=== PATIENT | female | born 1950 | race Caucasian/White ===

== ENCOUNTER 2016-07-07 23:09 | Inpatient (IN) | payer MEDICARE, MEDICAID, OTHER ==
[~2016-07-07] VITALS: Ht 172.7 cm; Wt 58.4 kg
[~2016-07-07 23:09] MED LIST: ATOM25 PO; BACL10TA PO; DIPH25CA85 PO; DULO60CA44 PO; LEVO100 PO; LURA40 PO; OMEP20 PO; TRAZ-147 PO
[2016-07-07 23:26] LABS: EOSINOPHILS % (AUTO) 0 % (1.0-6.0); HEMATOCRIT 37.7 % (36-46); HEMOGLOBIN 12.3 g/dL (12.0-16.0); LYMPHOCYTES # (AUTO) 0.8 K/uL (1.0-4.8); LYMPHOCYTES % (AUTO) 6.5 % (22.0-44.0); MEAN CORPUSCULAR HEMOGLOBIN 29.3 pg (26.0-34.0); MEAN CORPUSCULAR HGB CONC 32.7 G/dL (31.0-37.0); MEAN CORPUSCULAR VOLUME 90 fL (80-100); MONOCYTES # (AUTO) 0.3 K/uL (0.1-1.0); MONOCYTES % (AUTO) 2.1 % (2.0-9.0); NEUTROPHILS # (AUTO) 11.5 K/uL (1.8-7.7); PLATELET COUNT (AUTO) 289 K/uL (150-450); RED BLOOD CELL COUNT(AUTO) 4.21 MIL/uL (4.00-5.20); RED CELL DISTRIBUTION WIDTH 14.5 % (11.5-14.5); WHITE BLOOD COUNT (AUTO) 12.6 K/uL (4.5-11.0)
[2016-07-07 23:28] LABS: NEUTROPHILS % (AUTO) 91.4 % (40.0-70.0)
[2016-07-07] MEDS ORDERED: LEVO50TA4 PO (23:28)
[2016-07-07] MEDS ORDERED: PERM60CR4 TP (23:28)
[2016-07-07 23:35] LABS: ANION GAP 10 mmol/L (8-16); CALCIUM, TOTAL 9.4 mg/dL (8.8-10.5); CARBON DIOXIDE 31 mmol/L (22-29); CHLORIDE 89 mmol/L (98-107); CREATININE 1.23 mg/dL (0.60-1.30); GLOMERULAR FILTR. RATE CALC 44 mL/min (>60); POTASSIUM 3.6 mmol/L (3.5-5.1); SODIUM SERUM 130 mmol/L (136-145); UREA NITROGEN, BLOOD 31 mg/dL (7-18)
[2016-07-07 23:41] LABS: ALANINE AMINOTRANSFERASE 33 U/L (12-78); ALBUMIN 3.2 g/dL (3.4-5.0); ASPARTATE AMINOTRANSFERASE 28 U/L (15-37); BILIRUBIN,TOTAL 0.7 mg/dL (0.1-1.0); TOTAL PROTEIN, SERUM 7.3 g/dL (6.4-8.2)
[2016-07-08] MEDS ORDERED: HALOPERIDOL 5 MG TABLET PO PRN (02:30)
[2016-07-08] MEDS ORDERED: ZOLPIDEM TARTRATE 10 MG TABLET PO PRN (02:30)
[2016-07-08] MEDS ORDERED: LORazepam 2 MG TABLET PO PRN (02:30)
[2016-07-08] MEDS ORDERED: LORazepam 2 MG TABLET PO ONE (02:45)
[2016-07-08] MEDS ORDERED: DiphenhydrAMINE HCL 25 MG CAPSULE PO ONE (02:45)
[2016-07-08 05:24] LABS: APPEARANCE,URINE CLOUDY (CLEAR); GLUCOSE, URINE (UA) NEGATIVE (NEGATIVE); KETONES,URINE NEGATIVE (NEGATIVE); LEUKOCYTE ESTERASE ,URINE NEGATIVE (NEGATIVE); OCCULT BLOOD,URINE NEGATIVE (NEGATIVE); PH,URINE 5.5 (5.0-8.0); PROTEIN,URINE NEGATIVE (NEGATIVE)
[2016-07-08 05:32] LABS: ADD UA MICROSCOPIC YES
[2016-07-08 05:34] LABS: RBC,URINE 0-2 /HPF (0-2); SQUAMOUS EPITHELIAL CELL,UR Many /LPF (None Seen)
[2016-07-08 06:09] VITALS: BP_SYST 118
[2016-07-08] MEDS ORDERED: INFLUENZA VIRUS VACCINE QVS 2016-17 (3YR+)/PF 60 MCG/0.5 ML SYRINGE IM ONE (06:15)
[2016-07-08] MEDS ORDERED: PNEUMOCOCCAL VACCINE POLYVALENT 0.5 ML VIAL [PPSV23] IM ONE (06:45)
[2016-07-08 08:00] VITALS: BP 122/73
[2016-07-08] MEDS ORDERED: ACETAMINOPHEN 325 MG TABLET PO PRN (10:45)
[2016-07-08] MEDS ORDERED: MAG HYDROX/AL HYDROX/SIMETH ES 30 ML SUSPENSION UDCUP PO PRN (10:45)
[2016-07-08] MEDS ORDERED: GuaiFENesin/D-METHORPHAN [SUGAR-FREE] 200-20MG/10 ML SYRUP UDCUP PO PRN (10:45)
[2016-07-08] MEDS ORDERED: BREXPIPRAZOLE 2 MG TABLET PO PRN (10:45)
[2016-07-08] MEDS ORDERED: TUBERCULIN, PURIFIED PROTEIN DERIVATIVE 5 TU/0.1 ML SYG ID ONE (10:45)
[2016-07-08] MEDS ORDERED: HydrOXYzine PAMOATE 50 MG CAPSULE PO PRN (10:45)
[2016-07-08] MEDS ORDERED: LOPERAMIDE HCL 2 MG CAPSULE PO PRN (10:45)
[2016-07-08] MEDS ORDERED: PROMETHAZINE HCL 25 MG TABLET PO PRN (10:45)
[2016-07-08] MEDS ORDERED: LEVO100 PO (11:24)
[2016-07-08] MEDS ORDERED: ALBUTEROL SULFATE HFA 90 MCG/PUFF 8 GM INHALER IH PRN (11:30)
[2016-07-08] MEDS ORDERED: IPRATROPIUM BROMIDE 0.5 MG/2.5 ML NEB SOLUTION NEB PRN (11:30)
[2016-07-08] MEDS ORDERED: ALBUTEROL SULFATE 2.5 MG/0.5 ML NEB SOLUTION NEB PRN (11:30)
[2016-07-08] MEDS ORDERED: BENZOCAINE/MENTHOL LOZENGE [8 LOZENGES/PACKET] MM PRN (11:30)
[2016-07-08] MEDS ORDERED: GuaiFENesin/D-METHORPHAN/PHENYLEPH 5 ML LIQUID ORAL.SYG PO PRN (11:30)
[2016-07-08] MEDS ORDERED: IBUPROFEN 400 MG TABLET PO PRN (12:00)
[2016-07-08] MEDS: CEPHALEXIN MONOHYDRATE 500 MG CAPSULE PO SCH ×2 (13:14→17:05)
[2016-07-08] MEDS: BACLOFEN 10 MG TABLET PO SCH (16:18)
[2016-07-08] MEDS ORDERED: LEVOFLOXACIN 500 MG TABLET PO SCH (16:30)
[2016-07-08 17:02] VITALS: BP 95/51
[2016-07-08] MEDS: OMEPRAZOLE 20 MG CAPSULE PO SCH (17:05)
[2016-07-08] MEDS: THIAMINE HCL 100 MG TABLET PO SCH (17:05)
[2016-07-08] MEDS: BREXPIPRAZOLE 1 MG TABLET PO SCH (20:02)
[2016-07-08] MEDS: TraZODone HCL 100 MG TABLET PO SCH (20:03)
[2016-07-09 05:52] VITALS: BP 138/86
[2016-07-09] MEDS: LEVOTHYROXINE SODIUM 100 MCG TABLET PO SCH (06:24)
[2016-07-09] MEDS: BACLOFEN 10 MG TABLET PO SCH ×3 (08:00→16:01)
[2016-07-09] MEDS: CEPHALEXIN MONOHYDRATE 500 MG CAPSULE PO SCH ×3 (08:59→16:06)
[2016-07-09] MEDS: DULoxetine HCL 20 MG CAPSULE PO SCH (08:59)
[2016-07-09] MEDS: FOLIC ACID 1 MG TABLET PO SCH (08:59)
[2016-07-09] MEDS: OMEPRAZOLE 20 MG CAPSULE PO SCH ×2 (09:00→16:06)
[2016-07-09] MEDS: THIAMINE HCL 100 MG TABLET PO SCH ×2 (09:00→16:06)
[2016-07-09] MEDS: MULTIVITAMINS WITH MINERALS, THERAPEUTIC TABLET PO SCH (09:00)
[2016-07-09] MEDS ORDERED: ATOMOXETINE HCL 25 MG CAPSULE PO SCH (09:00)
[2016-07-09 09:59] VITALS: BP 124/58
[2016-07-09 18:27] VITALS: BP 125/67
[2016-07-09] MEDS: TraZODone HCL 100 MG TABLET PO SCH (20:59)
[2016-07-09] MEDS: BREXPIPRAZOLE 1 MG TABLET PO SCH (21:00)
[2016-07-09] MEDS: MAGNESIUM HYDROXIDE SUSPENSION 30 ML UDCUP PO PRN (21:22)
[2016-07-10 04:23] VITALS: BP 127/85
[2016-07-10] MEDS: LEVOTHYROXINE SODIUM 100 MCG TABLET PO SCH (06:42)
[2016-07-10] MEDS: MAGNESIUM HYDROXIDE SUSPENSION 30 ML UDCUP PO PRN (07:14)
[2016-07-10] MEDS: BACLOFEN 10 MG TABLET PO SCH ×3 (08:00→16:00)
[2016-07-10] MEDS: FOLIC ACID 1 MG TABLET PO SCH (08:53)
[2016-07-10] MEDS: OMEPRAZOLE 20 MG CAPSULE PO SCH ×2 (08:54→16:10)
[2016-07-10] MEDS: MULTIVITAMINS WITH MINERALS, THERAPEUTIC TABLET PO SCH (08:54)
[2016-07-10] MEDS: THIAMINE HCL 100 MG TABLET PO SCH ×2 (08:54→16:09)
[2016-07-10] MEDS: DULoxetine HCL 20 MG CAPSULE PO SCH (08:54)
[2016-07-10] MEDS: CEPHALEXIN MONOHYDRATE 500 MG CAPSULE PO SCH ×3 (08:54→16:09)
[2016-07-10 09:38] VITALS: BP 118/78
[2016-07-10] MEDS: BREXPIPRAZOLE 1 MG TABLET PO SCH (20:22)
[2016-07-10] MEDS: TraZODone HCL 100 MG TABLET PO SCH (20:22)
[2016-07-10 20:39] VITALS: BP 119/76
[2016-07-11] MEDS: BACLOFEN 10 MG TABLET PO SCH ×4 (00:41→16:29)
[2016-07-11 00:57] VITALS: BP 142/62
[2016-07-11] MEDS: MAGNESIUM HYDROXIDE SUSPENSION 30 ML UDCUP PO PRN (03:50)
[2016-07-11] MEDS: LEVOTHYROXINE SODIUM 100 MCG TABLET PO SCH (06:21)
[2016-07-11] MEDS: CEPHALEXIN MONOHYDRATE 500 MG CAPSULE PO SCH ×3 (09:00→17:00)
[2016-07-11] MEDS: OMEPRAZOLE 20 MG CAPSULE PO SCH ×2 (09:18→16:30)
[2016-07-11] MEDS: MULTIVITAMINS WITH MINERALS, THERAPEUTIC TABLET PO SCH (09:18)
[2016-07-11] MEDS: FOLIC ACID 1 MG TABLET PO SCH (09:19)
[2016-07-11] MEDS: DULoxetine HCL 20 MG CAPSULE PO SCH (09:19)
[2016-07-11] MEDS: THIAMINE HCL 100 MG TABLET PO SCH ×2 (09:19→16:29)
[2016-07-11 10:19] VITALS: BP 119/97
[2016-07-11 16:02] VITALS: BP 123/78
[2016-07-11] MEDS: TraZODone HCL 100 MG TABLET PO SCH (20:28)
[2016-07-11] MEDS: BREXPIPRAZOLE 1 MG TABLET PO SCH (20:28)
[2016-07-12 00:30] VITALS: BP 144/82
[2016-07-12] MEDS: LEVOTHYROXINE SODIUM 100 MCG TABLET PO SCH (06:39)
[2016-07-12] MEDS: BACLOFEN 10 MG TABLET PO SCH ×3 (08:00→16:00)
[2016-07-12 08:05] VITALS: BP 111/78
[2016-07-12] MEDS: THIAMINE HCL 100 MG TABLET PO SCH ×2 (09:00→16:20)
[2016-07-12] MEDS: OMEPRAZOLE 20 MG CAPSULE PO SCH ×2 (09:00→16:19)
[2016-07-12] MEDS: CEPHALEXIN MONOHYDRATE 500 MG CAPSULE PO SCH ×3 (09:00→16:19)
[2016-07-12] MEDS: DULoxetine HCL 20 MG CAPSULE PO SCH (09:00)
[2016-07-12] MEDS: FOLIC ACID 1 MG TABLET PO SCH (09:00)
[2016-07-12] MEDS: MULTIVITAMINS WITH MINERALS, THERAPEUTIC TABLET PO SCH (09:31)
[2016-07-12 17:16] VITALS: BP 129/91
[2016-07-12] MEDS: TraZODone HCL 100 MG TABLET PO SCH (20:09)
[2016-07-12] MEDS: BREXPIPRAZOLE 1 MG TABLET PO SCH (20:09)
[2016-07-13 05:59] VITALS: BP 155/80
[2016-07-13] MEDS: LEVOTHYROXINE SODIUM 100 MCG TABLET PO SCH (06:05)
[2016-07-13] MEDS: BACLOFEN 10 MG TABLET PO SCH ×3 (08:00→16:00)
[2016-07-13] MEDS: OMEPRAZOLE 20 MG CAPSULE PO SCH ×2 (08:13→16:10)
[2016-07-13] MEDS: CEPHALEXIN MONOHYDRATE 500 MG CAPSULE PO SCH ×3 (08:13→16:10)
[2016-07-13] MEDS: DULoxetine HCL 20 MG CAPSULE PO SCH (08:13)
[2016-07-13] MEDS: MULTIVITAMINS WITH MINERALS, THERAPEUTIC TABLET PO SCH (08:13)
[2016-07-13] MEDS: FOLIC ACID 1 MG TABLET PO SCH (08:13)
[2016-07-13] MEDS: THIAMINE HCL 100 MG TABLET PO SCH ×2 (08:14→16:10)
[2016-07-13 08:50] VITALS: BP 130/101
[2016-07-13 18:24] VITALS: BP 122/84
[2016-07-13] MEDS: TraZODone HCL 100 MG TABLET PO SCH (20:13)
[2016-07-13] MEDS: BREXPIPRAZOLE 1 MG TABLET PO SCH (20:13)
[2016-07-14 06:40] VITALS: BP 133/84
[2016-07-14] MEDS: LEVOTHYROXINE SODIUM 100 MCG TABLET PO SCH (07:00)
[2016-07-14] MEDS: BACLOFEN 10 MG TABLET PO SCH ×4 (08:00→23:59)
[2016-07-14 08:05] VITALS: BP 136/80
[2016-07-14] MEDS: MULTIVITAMINS WITH MINERALS, THERAPEUTIC TABLET PO SCH (08:44)
[2016-07-14] MEDS: THIAMINE HCL 100 MG TABLET PO SCH ×2 (09:00→17:00)
[2016-07-14] MEDS: DULoxetine HCL 20 MG CAPSULE PO SCH (09:00)
[2016-07-14] MEDS: CEPHALEXIN MONOHYDRATE 500 MG CAPSULE PO SCH ×3 (09:00→17:00)
[2016-07-14] MEDS: FOLIC ACID 1 MG TABLET PO SCH (09:00)
[2016-07-14] MEDS: OMEPRAZOLE 20 MG CAPSULE PO SCH ×2 (09:00→17:00)
[2016-07-14 09:14] LABS: ANION GAP 6 mmol/L (8-16); CALCIUM, TOTAL 8.7 mg/dL (8.8-10.5); CARBON DIOXIDE 32 mmol/L (22-29); CHLORIDE 100 mmol/L (98-107); CREATININE 0.83 mg/dL (0.60-1.30); GLOMERULAR FILTR. RATE CALC > 60 mL/min (>60); POTASSIUM 3.9 mmol/L (3.5-5.1); SODIUM SERUM 138 mmol/L (136-145); UREA NITROGEN, BLOOD 8 mg/dL (7-18)
[2016-07-14 15:45] VITALS: BP 120/66
[2016-07-14] MEDS: BREXPIPRAZOLE 1 MG TABLET PO SCH (21:00)
[2016-07-14] MEDS: TraZODone HCL 100 MG TABLET PO SCH (21:00)
[2016-07-14 22:57] VITALS: BP 124/71
[2016-07-15] MEDS: LEVOTHYROXINE SODIUM 100 MCG TABLET PO SCH (06:50)
[2016-07-15] MEDS: MULTIVITAMINS WITH MINERALS, THERAPEUTIC TABLET PO SCH (08:38)
[2016-07-15] MEDS: FOLIC ACID 1 MG TABLET PO SCH (08:38)
[2016-07-15] MEDS: CEPHALEXIN MONOHYDRATE 500 MG CAPSULE PO SCH ×3 (08:38→16:37)
[2016-07-15] MEDS: OMEPRAZOLE 20 MG CAPSULE PO SCH ×2 (08:38→16:37)
[2016-07-15] MEDS: THIAMINE HCL 100 MG TABLET PO SCH ×2 (08:38→16:37)
[2016-07-15] MEDS: DULoxetine HCL 20 MG CAPSULE PO SCH (08:38)
[2016-07-15] MEDS: BACLOFEN 10 MG TABLET PO SCH ×2 (08:39→16:00)
[2016-07-15 09:05] VITALS: BP 113/74
[2016-07-15] MEDS ORDERED: HALOPERIDOL LACTATE 5 MG/ML VIAL IM PRN (13:15)
[2016-07-15 16:57] VITALS: BP 107/73
[2016-07-15] MEDS: BREXPIPRAZOLE 1 MG TABLET PO SCH (20:32)
[2016-07-15] MEDS: TraZODone HCL 100 MG TABLET PO SCH (21:00)
[2016-07-15] MEDS: ACETAMINOPHEN 325 MG TABLET PO PRN (23:52)
[2016-07-16 00:01] VITALS: BP 138/91
[2016-07-16] MEDS: LEVOTHYROXINE SODIUM 100 MCG TABLET PO SCH (07:19)
[2016-07-16] MEDS: OMEPRAZOLE 20 MG CAPSULE PO SCH ×2 (08:37→16:09)
[2016-07-16] MEDS: MULTIVITAMINS WITH MINERALS, THERAPEUTIC TABLET PO SCH (08:37)
[2016-07-16] MEDS: DULoxetine HCL 20 MG CAPSULE PO SCH (08:38)
[2016-07-16] MEDS: FOLIC ACID 1 MG TABLET PO SCH (08:38)
[2016-07-16] MEDS: BACLOFEN 10 MG TABLET PO SCH ×3 (08:38→16:00)
[2016-07-16] MEDS: THIAMINE HCL 100 MG TABLET PO SCH ×2 (08:39→16:09)
[2016-07-16] MEDS: CEPHALEXIN MONOHYDRATE 500 MG CAPSULE PO SCH ×3 (08:39→16:09)
[2016-07-16] MEDS: ACETAMINOPHEN 325 MG TABLET PO PRN (11:40)
[2016-07-16 12:41] VITALS: BP 130/70
[2016-07-16 16:40] VITALS: BP 121/82
[2016-07-16] MEDS: TraZODone HCL 100 MG TABLET PO SCH (20:17)
[2016-07-16] MEDS: BREXPIPRAZOLE 1 MG TABLET PO SCH (20:17)
[2016-07-17] MEDS: LEVOTHYROXINE SODIUM 100 MCG TABLET PO SCH (06:12)
[2016-07-17 06:39] VITALS: BP 141/81
[2016-07-17 08:30] VITALS: BP 119/80
[2016-07-17] MEDS: DULoxetine HCL 20 MG CAPSULE PO SCH (09:23)
[2016-07-17] MEDS: OMEPRAZOLE 20 MG CAPSULE PO SCH ×2 (09:23→16:20)
[2016-07-17] MEDS: THIAMINE HCL 100 MG TABLET PO SCH ×2 (09:23→16:20)
[2016-07-17] MEDS: CEPHALEXIN MONOHYDRATE 500 MG CAPSULE PO SCH ×3 (09:23→16:20)
[2016-07-17] MEDS: MULTIVITAMINS WITH MINERALS, THERAPEUTIC TABLET PO SCH (09:23)
[2016-07-17] MEDS: FOLIC ACID 1 MG TABLET PO SCH (09:24)
[2016-07-17] MEDS: BACLOFEN 10 MG TABLET PO SCH ×3 (09:24→16:00)
[2016-07-17 17:14] VITALS: BP 136/82
[2016-07-17] MEDS: BREXPIPRAZOLE 1 MG TABLET PO SCH (20:21)
[2016-07-17] MEDS: TraZODone HCL 100 MG TABLET PO SCH (20:22)
[2016-07-18] MEDS: LEVOTHYROXINE SODIUM 100 MCG TABLET PO SCH (06:34)
[2016-07-18 06:44] VITALS: BP 140/72
[2016-07-18 08:00] VITALS: BP 135/72
[2016-07-18] MEDS: MULTIVITAMINS WITH MINERALS, THERAPEUTIC TABLET PO SCH (08:33)
[2016-07-18] MEDS: CEPHALEXIN MONOHYDRATE 500 MG CAPSULE PO SCH (08:33)
[2016-07-18] MEDS: OMEPRAZOLE 20 MG CAPSULE PO SCH ×2 (08:33→16:30)
[2016-07-18] MEDS: FOLIC ACID 1 MG TABLET PO SCH (08:33)
[2016-07-18] MEDS: DULoxetine HCL 20 MG CAPSULE PO SCH (08:33)
[2016-07-18] MEDS: BACLOFEN 10 MG TABLET PO SCH ×3 (08:34→16:00)
[2016-07-18] MEDS: THIAMINE HCL 100 MG TABLET PO SCH (08:34)
[2016-07-18 16:52] VITALS: BP 135/90
[2016-07-18] MEDS: TraZODone HCL 100 MG TABLET PO SCH (20:03)
[2016-07-18] MEDS: BREXPIPRAZOLE 1 MG TABLET PO SCH (20:03)
[2016-07-19] MEDS: LEVOTHYROXINE SODIUM 100 MCG TABLET PO SCH (06:38)
[2016-07-19 06:58] VITALS: BP 130/86
[2016-07-19 08:00] VITALS: BP 121/65
[2016-07-19] MEDS: BACLOFEN 10 MG TABLET PO SCH ×3 (08:00→16:00)
[2016-07-19] MEDS: OMEPRAZOLE 20 MG CAPSULE PO SCH ×2 (08:28→17:29)
[2016-07-19] MEDS: MULTIVITAMINS WITH MINERALS, THERAPEUTIC TABLET PO SCH (08:28)
[2016-07-19] MEDS: DULoxetine HCL 20 MG CAPSULE PO SCH (08:28)
[2016-07-19 18:03] VITALS: BP 138/73
[2016-07-19] MEDS: BREXPIPRAZOLE 1 MG TABLET PO SCH (22:09)
[2016-07-19] MEDS: TraZODone HCL 100 MG TABLET PO SCH (22:09)
[2016-07-20 02:00] VITALS: BP 142/75
[2016-07-20] MEDS: LEVOTHYROXINE SODIUM 100 MCG TABLET PO SCH (05:22)
[2016-07-20 08:00] VITALS: BP 146/86
[2016-07-20] MEDS: BACLOFEN 10 MG TABLET PO SCH ×3 (08:00→15:49)
[2016-07-20] MEDS: OMEPRAZOLE 20 MG CAPSULE PO SCH ×2 (08:48→15:50)
[2016-07-20] MEDS: MULTIVITAMINS WITH MINERALS, THERAPEUTIC TABLET PO SCH (08:48)
[2016-07-20] MEDS: DULoxetine HCL 20 MG CAPSULE PO SCH (08:48)
[2016-07-20 16:26] VITALS: BP 145/84
[2016-07-20] MEDS: TraZODone HCL 100 MG TABLET PO SCH (20:33)
[2016-07-20] MEDS: BREXPIPRAZOLE 1 MG TABLET PO SCH (20:33)
[2016-07-21] VITALS: BP 129/85
[2016-07-21] MEDS: BACLOFEN 10 MG TABLET PO SCH ×3 (00:19→16:38)
[2016-07-21] MEDS: LEVOTHYROXINE SODIUM 100 MCG TABLET PO SCH (06:31)
[2016-07-21 08:00] VITALS: BP 145/75
[2016-07-21] MEDS: DULoxetine HCL 20 MG CAPSULE PO SCH (08:06)
[2016-07-21] MEDS: OMEPRAZOLE 20 MG CAPSULE PO SCH ×2 (08:06→16:38)
[2016-07-21] MEDS: MULTIVITAMINS WITH MINERALS, THERAPEUTIC TABLET PO SCH (08:06)
[2016-07-21 18:41] VITALS: BP 150/99
[2016-07-21] MEDS: BREXPIPRAZOLE 1 MG TABLET PO SCH (20:19)
[2016-07-21] MEDS: TraZODone HCL 100 MG TABLET PO SCH (20:20)
[2016-07-22 05:47] VITALS: BP 134/78
[2016-07-22] MEDS: LEVOTHYROXINE SODIUM 100 MCG TABLET PO SCH (06:18)
[2016-07-22] MEDS: BACLOFEN 10 MG TABLET PO SCH ×3 (09:42→16:11)
[2016-07-22] MEDS: OMEPRAZOLE 20 MG CAPSULE PO SCH ×2 (09:42→16:11)
[2016-07-22] MEDS: MULTIVITAMINS WITH MINERALS, THERAPEUTIC TABLET PO SCH (09:42)
[2016-07-22] MEDS: DULoxetine HCL 20 MG CAPSULE PO SCH (09:42)
[2016-07-22] MEDS: TraZODone HCL 100 MG TABLET PO SCH (20:09)
[2016-07-22] MEDS: BREXPIPRAZOLE 1 MG TABLET PO SCH (20:09)
[2016-07-23] MEDS: BACLOFEN 10 MG TABLET PO SCH ×3 (00:27→16:10)
[2016-07-23] MEDS: LEVOTHYROXINE SODIUM 100 MCG TABLET PO SCH (06:24)
[2016-07-23 08:30] VITALS: BP 140/88
[2016-07-23] MEDS: DULoxetine HCL 20 MG CAPSULE PO SCH (08:47)
[2016-07-23] MEDS: MULTIVITAMINS WITH MINERALS, THERAPEUTIC TABLET PO SCH (08:47)
[2016-07-23] MEDS: OMEPRAZOLE 20 MG CAPSULE PO SCH ×2 (08:47→16:10)
[2016-07-23] MEDS: BREXPIPRAZOLE 1 MG TABLET PO SCH (20:12)
[2016-07-23] MEDS: TraZODone HCL 100 MG TABLET PO SCH (20:12)
[2016-07-24] MEDS: BACLOFEN 10 MG TABLET PO SCH ×3 (00:37→16:07)
[2016-07-24] MEDS: LEVOTHYROXINE SODIUM 100 MCG TABLET PO SCH (06:22)
[2016-07-24 08:00] VITALS: BP 148/86
[2016-07-24] MEDS: MULTIVITAMINS WITH MINERALS, THERAPEUTIC TABLET PO SCH (08:13)
[2016-07-24] MEDS: DULoxetine HCL 20 MG CAPSULE PO SCH (08:13)
[2016-07-24] MEDS: OMEPRAZOLE 20 MG CAPSULE PO SCH ×2 (08:13→16:07)
[2016-07-24 16:20] VITALS: BP 145/81
[2016-07-24] MEDS: TraZODone HCL 100 MG TABLET PO SCH (20:04)
[2016-07-24] MEDS: BREXPIPRAZOLE 1 MG TABLET PO SCH (20:04)
[2016-07-25] MEDS: BACLOFEN 10 MG TABLET PO SCH ×2 (00:10→08:00)
[2016-07-25] MEDS: LEVOTHYROXINE SODIUM 100 MCG TABLET PO SCH (06:15)
[2016-07-25 08:05] VITALS: BP 150/94
[2016-07-25] MEDS: MULTIVITAMINS WITH MINERALS, THERAPEUTIC TABLET PO SCH (08:49)
[2016-07-25] MEDS: DULoxetine HCL 20 MG CAPSULE PO SCH (09:00)
[2016-07-25] MEDS: OMEPRAZOLE 20 MG CAPSULE PO SCH (09:00)
[2016-07-25] MEDS ORDERED: BREX3TAB PO (13:54)
[2016-07-25] MEDS ORDERED: TRAZ-147 PO (13:56)
[2016-07-25] MEDS ORDERED: DULO20CA30 PO (13:56)
[2016-07-25] MEDS ORDERED: MV-M1TAB2 PO (14:00)
== END 2016-07-25 15:45 | disposition home or self-care (01) | DRG 885 ==
LOC: EMS 23:11 → EEVIPCON 23:11 → 3EX 07-08 03:22
PROVIDERS: ADMIT Psychiatry & Neurology Psychiatry
DX: F20.0 Paranoid schizophrenia (principal); E87.1 Hypo-osmolality and hyponatremia; R45.851 Suicidal ideations; L03.116 Cellulitis of left lower limb; L03.115 Cellulitis of right lower limb; F12.90 Cannabis use, unspecified, uncomplicated; E03.9 Hypothyroidism, unspecified; F60.9 Personality disorder, unspecified; M81.0 Age-related osteoporosis without current pathological fracture; M19.90 Unspecified osteoarthritis, unspecified site; F99 Mental disorder, not otherwise specified; F19.10 Other psychoactive substance abuse, uncomplicated; F17.210 Nicotine dependence, cigarettes, uncomplicated; Z96.659 Presence of unspecified artificial knee joint; J44.9 Chronic obstructive pulmonary disease, unspecified; I34.1 Nonrheumatic mitral (valve) prolapse; I10 Essential (primary) hypertension; F41.9 Anxiety disorder, unspecified; Z53.29 Procedure and treatment not carried out because of patient's decision for other reasons; F32.9 Major depressive disorder, single episode, unspecified; Z88.5 Allergy status to narcotic agent; Z88.2 Allergy status to sulfonamides; Z88.8 Allergy status to other drugs, medicaments and biological substances; Z79.899 Other long term (current) drug therapy; Z90.49 Acquired absence of other specified parts of digestive tract; Z98.890 Other specified postprocedural states; Z59.0 Homelessness; Z81.8 Family history of other mental and behavioral disorders; Z98.1 Arthrodesis status; Z98.84 Bariatric surgery status; Z82.49 Family history of ischemic heart disease and other diseases of the circulatory system; Z87.11 Personal history of peptic ulcer disease; Z91.19 Patient's noncompliance with other medical treatment and regimen; Z90.710 Acquired absence of both cervix and uterus
CPT/HCPCS: 71020; 99285; G0480

== ENCOUNTER 2016-07-26 05:02 | Inpatient (IN) | payer MEDICARE, MEDICAID ==
[~2016-07-26] VITALS: Ht 172.7 cm; Wt 59.4 kg
[~2016-07-26 05:02] MED LIST changes: -ATOM25 PO; +BREX3TAB PO; -DIPH25CA85 PO; +DULO20CA30 PO; -DULO60CA44 PO; -LURA40 PO; +MV-M1TAB2 PO
[2016-07-26 05:43] LABS: BASOPHILS # (AUTO) 0.05 K/uL (0.00-0.20); BASOPHILS % (AUTO) 1.1 % (0.0-2.0); EOSINOPHILS # (AUTO) 0.07 K/uL (0.00-0.70); EOSINOPHILS % (AUTO) 1.35 % (1.0-6.0); HEMATOCRIT 32.2 % (36-46); HEMOGLOBIN 10.5 g/dL (12.0-16.0); LYMPHOCYTES % (AUTO) 20.7 % (22.0-44.0); MEAN CORPUSCULAR HGB CONC 32.6 G/dL (31.0-37.0); MEAN CORPUSCULAR VOLUME 92 fL (80-100); MONOCYTES # (AUTO) 0.4 K/uL (0.1-1.0); MONOCYTES % (AUTO) 7.6 % (2.0-9.0); NEUTROPHILS # (AUTO) 3.4 K/uL (1.8-7.7); NEUTROPHILS % (AUTO) 69.3 % (40.0-70.0); PLATELET COUNT (AUTO) 386 K/uL (150-450); WHITE BLOOD COUNT (AUTO) 4.9 K/uL (4.5-11.0)
[2016-07-26 05:51] LABS: ANION GAP 8 mmol/L (8-16); CALCIUM, TOTAL 8.5 mg/dL (8.8-10.5); CARBON DIOXIDE 31 mmol/L (22-29); CHLORIDE 106 mmol/L (98-107); CREATININE 0.66 mg/dL (0.60-1.30); GLOMERULAR FILTR. RATE CALC > 60 mL/min (>60); POTASSIUM 3.7 mmol/L (3.5-5.1); SODIUM SERUM 145 mmol/L (136-145); UREA NITROGEN, BLOOD 12 mg/dL (7-18)
[2016-07-26 05:57] LABS: ALANINE AMINOTRANSFERASE 27 U/L (12-78); ALBUMIN 2.6 g/dL (3.4-5.0); ASPARTATE AMINOTRANSFERASE 19 U/L (15-37); BILIRUBIN,TOTAL 0.2 mg/dL (0.1-1.0); TOTAL PROTEIN, SERUM 6.6 g/dL (6.4-8.2)
[2016-07-26] MEDS ORDERED: ZOLPIDEM TARTRATE 10 MG TABLET PO PRN (08:15)
[2016-07-26] MEDS: DULoxetine HCL 20 MG CAPSULE PO SCH (09:29)
[2016-07-26] MEDS ORDERED: INFLUENZA VIRUS VACCINE QVS 2016-17 (3YR+)/PF 60 MCG/0.5 ML SYRINGE IM ONE (10:00)
[2016-07-26 10:01] VITALS: BP 174/86
[2016-07-26] MEDS ORDERED: CloNIDine HCL 0.1 MG TABLET PO PRN (13:00)
[2016-07-26] MEDS ORDERED: IBUPROFEN 400 MG TABLET PO PRN (13:00)
[2016-07-26] MEDS: AmLODIPine BESYLATE 5 MG TABLET PO SCH (13:26)
[2016-07-26 14:21] VITALS: BP 126/78
[2016-07-26 14:22] VITALS: BP 126/78
[2016-07-26 16:08] VITALS: BP 143/75
[2016-07-26 16:09] VITALS: BP 143/75
[2016-07-26] MEDS: ACETAMINOPHEN 325 MG TABLET PO PRN (16:33)
[2016-07-26] MEDS: OMEPRAZOLE 20 MG CAPSULE PO SCH (17:00)
[2016-07-26] MEDS: TraZODone HCL 100 MG TABLET PO SCH (20:35)
[2016-07-26] MEDS: LORazepam 2 MG TABLET PO PRN (20:46)
[2016-07-27 00:08] VITALS: BP 110/60
[2016-07-27 05:32] VITALS: BP 110/60
[2016-07-27] MEDS: LEVOTHYROXINE SODIUM 100 MCG TABLET PO SCH (05:37)
[2016-07-27] MEDS: ACETAMINOPHEN 325 MG TABLET PO PRN (05:37)
[2016-07-27 08:00] VITALS: BP 128/75
[2016-07-27 08:29] LABS: CHOL/HDL RATIO 2.4 (3.9-5.7)
[2016-07-27 09:00] VITALS: BP 128/78
[2016-07-27] MEDS: BACLOFEN 10 MG TABLET PO SCH (09:15)
[2016-07-27] MEDS: DULoxetine HCL 20 MG CAPSULE PO SCH (09:15)
[2016-07-27] MEDS: OMEPRAZOLE 20 MG CAPSULE PO SCH ×2 (09:15→16:34)
[2016-07-27] MEDS: AmLODIPine BESYLATE 5 MG TABLET PO SCH (09:16)
[2016-07-27] MEDS: LORazepam 2 MG TABLET PO PRN ×2 (09:18→20:05)
[2016-07-27] MEDS ORDERED: BREXPIPRAZOLE 2 MG TABLET PO PRN (16:00)
[2016-07-27 16:05] VITALS: BP 122/79
[2016-07-27 16:33] VITALS: BP 122/79
[2016-07-27] MEDS: THIAMINE HCL 100 MG TABLET PO SCH (16:45)
[2016-07-27] MEDS: TraZODone HCL 100 MG TABLET PO SCH (20:32)
[2016-07-27] MEDS: BREXPIPRAZOLE 2 MG TABLET PO SCH (21:40)
[2016-07-27] MEDS: ZOLPIDEM TARTRATE 10 MG TABLET PO SCH (21:40)
[2016-07-28 05:03] VITALS: BP 116/70
[2016-07-28] MEDS: LEVOTHYROXINE SODIUM 100 MCG TABLET PO SCH (06:35)
[2016-07-28 08:31] VITALS: BP 126/64
[2016-07-28] MEDS: AmLODIPine BESYLATE 5 MG TABLET PO SCH (08:38)
[2016-07-28] MEDS: DULoxetine HCL 20 MG CAPSULE PO SCH (08:38)
[2016-07-28] MEDS: FOLIC ACID 1 MG TABLET PO SCH (08:39)
[2016-07-28] MEDS: MULTIVITAMINS WITH MINERALS, THERAPEUTIC TABLET PO SCH (08:39)
[2016-07-28] MEDS: THIAMINE HCL 100 MG TABLET PO SCH ×2 (08:39→16:32)
[2016-07-28] MEDS: BACLOFEN 10 MG TABLET PO SCH (08:39)
[2016-07-28] MEDS: ATOMOXETINE HCL 25 MG CAPSULE PO SCH (08:39)
[2016-07-28] MEDS: OMEPRAZOLE 20 MG CAPSULE PO SCH ×2 (08:39→16:32)
[2016-07-28] MEDS: LORazepam 2 MG TABLET PO PRN (08:51)
[2016-07-28 16:05] VITALS: BP 119/68
[2016-07-28] MEDS: MUPIROCIN CALCIUM 2% 22 GM OINTMENT NASAL SCH (16:32)
[2016-07-28] MEDS: BREXPIPRAZOLE 2 MG TABLET PO SCH (21:00)
[2016-07-28] MEDS: ZOLPIDEM TARTRATE 10 MG TABLET PO SCH (21:00)
[2016-07-28] MEDS ORDERED: TraZODone HCL 100 MG TABLET PO SCH (21:00)
[2016-07-29 04:52] VITALS: BP 109/76
[2016-07-29] MEDS: ACETAMINOPHEN 325 MG TABLET PO PRN ×2 (04:54→16:15)
[2016-07-29] MEDS: LORazepam 2 MG TABLET PO PRN ×2 (04:54→19:24)
[2016-07-29] MEDS: LEVOTHYROXINE SODIUM 100 MCG TABLET PO SCH (07:25)
[2016-07-29 08:15] VITALS: BP 131/72
[2016-07-29] MEDS: DULoxetine HCL 20 MG CAPSULE PO SCH (09:11)
[2016-07-29] MEDS: FOLIC ACID 1 MG TABLET PO SCH (09:11)
[2016-07-29] MEDS: MULTIVITAMINS WITH MINERALS, THERAPEUTIC TABLET PO SCH (09:11)
[2016-07-29] MEDS: OMEPRAZOLE 20 MG CAPSULE PO SCH ×2 (09:11→16:14)
[2016-07-29] MEDS: THIAMINE HCL 100 MG TABLET PO SCH ×2 (09:12→16:14)
[2016-07-29] MEDS: AmLODIPine BESYLATE 5 MG TABLET PO SCH (09:12)
[2016-07-29] MEDS: BACLOFEN 10 MG TABLET PO SCH (09:12)
[2016-07-29] MEDS: ATOMOXETINE HCL 25 MG CAPSULE PO SCH (09:13)
[2016-07-29] MEDS: MUPIROCIN CALCIUM 2% 22 GM OINTMENT NASAL SCH ×2 (09:15→16:14)
[2016-07-29 16:01] VITALS: BP 101/74
[2016-07-29] MEDS: HYPROMELLOSE 0.5% 15 ML OPHTHALMIC SOLUTION OU PRN (16:15)
[2016-07-29] MEDS: BREXPIPRAZOLE 2 MG TABLET PO SCH (21:11)
[2016-07-29] MEDS: TraZODone HCL 150 MG TABLET PO SCH (21:12)
[2016-07-29] MEDS: ZOLPIDEM TARTRATE 10 MG TABLET PO SCH (21:12)
[2016-07-30 04:05] VITALS: BP 110/78
[2016-07-30] MEDS: HYPROMELLOSE 0.5% 15 ML OPHTHALMIC SOLUTION OU PRN (04:08)
[2016-07-30] MEDS: LORazepam 2 MG TABLET PO PRN ×4 (04:08→22:13)
[2016-07-30] MEDS: LEVOTHYROXINE SODIUM 100 MCG TABLET PO SCH (07:02)
[2016-07-30 08:01] VITALS: BP 111/76
[2016-07-30] MEDS: DULoxetine HCL 20 MG CAPSULE PO SCH (08:20)
[2016-07-30] MEDS: AmLODIPine BESYLATE 5 MG TABLET PO SCH (08:20)
[2016-07-30] MEDS: MUPIROCIN CALCIUM 2% 22 GM OINTMENT NASAL SCH ×2 (08:20→16:09)
[2016-07-30] MEDS: BACLOFEN 10 MG TABLET PO SCH (08:20)
[2016-07-30] MEDS: ATOMOXETINE HCL 25 MG CAPSULE PO SCH (08:20)
[2016-07-30] MEDS: MULTIVITAMINS WITH MINERALS, THERAPEUTIC TABLET PO SCH (08:21)
[2016-07-30] MEDS: THIAMINE HCL 100 MG TABLET PO SCH ×2 (08:21→16:07)
[2016-07-30] MEDS: OMEPRAZOLE 20 MG CAPSULE PO SCH ×2 (08:21→16:07)
[2016-07-30] MEDS: FOLIC ACID 1 MG TABLET PO SCH (08:21)
[2016-07-30] MEDS: ACETAMINOPHEN 325 MG TABLET PO PRN ×2 (10:18→22:12)
[2016-07-30 16:07] VITALS: BP 107/70
[2016-07-30] MEDS: TraZODone HCL 150 MG TABLET PO SCH (20:45)
[2016-07-30] MEDS: BREXPIPRAZOLE 2 MG TABLET PO SCH (20:45)
[2016-07-30] MEDS: ZOLPIDEM TARTRATE 10 MG TABLET PO SCH (20:46)
[2016-07-30 22:13] VITALS: BP 111/75
[2016-07-31 00:01] VITALS: BP 112/60
[2016-07-31] MEDS: LEVOTHYROXINE SODIUM 100 MCG TABLET PO SCH (06:48)
[2016-07-31 08:02] VITALS: BP 111/71
[2016-07-31] MEDS: FOLIC ACID 1 MG TABLET PO SCH (08:12)
[2016-07-31] MEDS: ATOMOXETINE HCL 25 MG CAPSULE PO SCH (08:12)
[2016-07-31] MEDS: BACLOFEN 10 MG TABLET PO SCH (08:12)
[2016-07-31] MEDS: THIAMINE HCL 100 MG TABLET PO SCH ×2 (08:12→16:34)
[2016-07-31] MEDS: AmLODIPine BESYLATE 5 MG TABLET PO SCH (08:12)
[2016-07-31] MEDS: OMEPRAZOLE 20 MG CAPSULE PO SCH ×2 (08:13→16:34)
[2016-07-31] MEDS: DULoxetine HCL 20 MG CAPSULE PO SCH (08:13)
[2016-07-31] MEDS: MULTIVITAMINS WITH MINERALS, THERAPEUTIC TABLET PO SCH (08:13)
[2016-07-31] MEDS: ACETAMINOPHEN 325 MG TABLET PO PRN (08:14)
[2016-07-31] MEDS: LORazepam 2 MG TABLET PO PRN ×3 (08:14→19:38)
[2016-07-31] MEDS: MUPIROCIN CALCIUM 2% 22 GM OINTMENT NASAL SCH ×2 (08:15→16:33)
[2016-07-31] MEDS: HYPROMELLOSE 0.5% 15 ML OPHTHALMIC SOLUTION OU PRN (14:47)
[2016-07-31 16:05] VITALS: BP 107/66
[2016-07-31] MEDS: BACLOFEN 10 MG TABLET PO PRN (16:06)
[2016-07-31] MEDS: BREXPIPRAZOLE 2 MG TABLET PO SCH (20:41)
[2016-07-31] MEDS: TraZODone HCL 150 MG TABLET PO SCH (20:41)
[2016-07-31] MEDS: ZOLPIDEM TARTRATE 10 MG TABLET PO SCH (20:41)
[2016-08-01] VITALS (8 sets, daily range): BP systolic 101–119; BP diastolic 60–73
[2016-08-01] MEDS: BACLOFEN 10 MG TABLET PO PRN ×2 (02:25→09:02)
[2016-08-01] MEDS: LORazepam 2 MG TABLET PO PRN ×4 (02:25→20:03)
[2016-08-01] MEDS: LEVOTHYROXINE SODIUM 100 MCG TABLET PO SCH (05:46)
[2016-08-01] MEDS: ACETAMINOPHEN 325 MG TABLET PO PRN ×2 (05:46→13:59)
[2016-08-01] MEDS: MUPIROCIN CALCIUM 2% 22 GM OINTMENT NASAL SCH ×2 (08:51→16:40)
[2016-08-01] MEDS: FOLIC ACID 1 MG TABLET PO SCH (08:51)
[2016-08-01] MEDS: THIAMINE HCL 100 MG TABLET PO SCH ×2 (08:51→16:39)
[2016-08-01] MEDS: MULTIVITAMINS WITH MINERALS, THERAPEUTIC TABLET PO SCH (08:51)
[2016-08-01] MEDS: OMEPRAZOLE 20 MG CAPSULE PO SCH ×2 (08:51→16:39)
[2016-08-01] MEDS: DULoxetine HCL 20 MG CAPSULE PO SCH (08:51)
[2016-08-01] MEDS: AmLODIPine BESYLATE 5 MG TABLET PO SCH (08:52)
[2016-08-01] MEDS: ATOMOXETINE HCL 25 MG CAPSULE PO SCH (08:52)
[2016-08-01] MEDS: TraZODone HCL 100 MG TABLET PO SCH (21:03)
[2016-08-01] MEDS: BREXPIPRAZOLE 2 MG TABLET PO SCH (21:03)
[2016-08-01] MEDS: ZOLPIDEM TARTRATE 10 MG TABLET PO SCH (21:03)
[2016-08-02 05:00] VITALS: BP 121/72
[2016-08-02] MEDS: ACETAMINOPHEN 325 MG TABLET PO PRN (05:02)
[2016-08-02] MEDS: LORazepam 2 MG TABLET PO PRN ×4 (05:03→21:45)
[2016-08-02] MEDS: LEVOTHYROXINE SODIUM 100 MCG TABLET PO SCH (06:47)
[2016-08-02 08:09] VITALS: BP 114/60
[2016-08-02] MEDS: ATOMOXETINE HCL 25 MG CAPSULE PO SCH (08:48)
[2016-08-02] MEDS: MUPIROCIN CALCIUM 2% 22 GM OINTMENT NASAL SCH (08:48)
[2016-08-02] MEDS: AmLODIPine BESYLATE 5 MG TABLET PO SCH (08:50)
[2016-08-02] MEDS: DULoxetine HCL 30 MG CAPSULE PO SCH (08:51)
[2016-08-02] MEDS: MULTIVITAMINS WITH MINERALS, THERAPEUTIC TABLET PO SCH (08:52)
[2016-08-02] MEDS: OMEPRAZOLE 20 MG CAPSULE PO SCH ×2 (08:52→16:34)
[2016-08-02] MEDS: THIAMINE HCL 100 MG TABLET PO SCH ×2 (08:52→16:34)
[2016-08-02] MEDS: FOLIC ACID 1 MG TABLET PO SCH (08:52)
[2016-08-02 10:31] VITALS: BP 128/80
[2016-08-02 16:04] VITALS: BP 121/76
[2016-08-02] MEDS: BACLOFEN 10 MG TABLET PO PRN (16:04)
[2016-08-02 16:14] VITALS: BP 121/76
[2016-08-02] MEDS: BREXPIPRAZOLE 2 MG TABLET PO SCH (20:38)
[2016-08-02] MEDS: TraZODone HCL 100 MG TABLET PO SCH (20:38)
[2016-08-02] MEDS: ZOLPIDEM TARTRATE 10 MG TABLET PO SCH (20:38)
[2016-08-03 01:47] VITALS: BP 109/79
[2016-08-03] MEDS: MAGNESIUM HYDROXIDE SUSPENSION 30 ML UDCUP PO PRN ×2 (01:51→09:01)
[2016-08-03] MEDS: ACETAMINOPHEN 325 MG TABLET PO PRN (01:51)
[2016-08-03] MEDS: BACLOFEN 10 MG TABLET PO PRN ×2 (02:58→10:28)
[2016-08-03] MEDS: LORazepam 2 MG TABLET PO PRN ×3 (06:06→16:26)
[2016-08-03] MEDS: LEVOTHYROXINE SODIUM 100 MCG TABLET PO SCH (06:55)
[2016-08-03 08:23] VITALS: BP 112/66
[2016-08-03] MEDS: DULoxetine HCL 30 MG CAPSULE PO SCH (08:54)
[2016-08-03] MEDS: THIAMINE HCL 100 MG TABLET PO SCH ×2 (08:55→16:41)
[2016-08-03] MEDS: OMEPRAZOLE 20 MG CAPSULE PO SCH ×2 (08:55→16:41)
[2016-08-03] MEDS: ATOMOXETINE HCL 25 MG CAPSULE PO SCH (08:55)
[2016-08-03] MEDS: FOLIC ACID 1 MG TABLET PO SCH (08:55)
[2016-08-03] MEDS: AmLODIPine BESYLATE 5 MG TABLET PO SCH (08:55)
[2016-08-03] MEDS: MULTIVITAMINS WITH MINERALS, THERAPEUTIC TABLET PO SCH (08:55)
[2016-08-03] MEDS ORDERED: MAGNESIUM CITRATE 300 ML ORAL SOLUTION PO PRN (09:15)
[2016-08-03 10:28] VITALS: BP 116/68
[2016-08-03] MEDS ORDERED: ATOM25 PO (11:57)
[2016-08-03] MEDS ORDERED: DULO30CA2 PO (11:57)
[2016-08-03] MEDS ORDERED: TRAZ-147 PO (11:57)
[2016-08-03] MEDS ORDERED: BREX2TAB PO (12:02)
[2016-08-03 16:12] VITALS: BP 101/67
[2016-08-03 16:27] VITALS: BP 116/83
[2016-08-03] MEDS ORDERED: BREXPIPRAZOLE 2 MG TABLET PO SCH ×2 (21:00)
[2016-08-03] MEDS: ZOLPIDEM TARTRATE 10 MG TABLET PO SCH (21:14)
[2016-08-03] MEDS: TraZODone HCL 100 MG TABLET PO SCH (21:15)
[2016-08-04 02:55] VITALS: BP 112/82
[2016-08-04] MEDS: BACLOFEN 10 MG TABLET PO PRN (02:55)
[2016-08-04] MEDS ORDERED: TRAZ-147 PO (03:51)
[2016-08-04] MEDS ORDERED: ATOM25 PO (03:51)
[2016-08-04] MEDS ORDERED: DULO30CA2 PO (03:51)
[2016-08-04] MEDS ORDERED: BREX4TAB PO (03:51)
[2016-08-04] MEDS ORDERED: LEVO100 PO (03:54)
[2016-08-04] MEDS ORDERED: FOLI1 PO (03:54)
[2016-08-04] MEDS ORDERED: MULT-248 PO (04:03)
[2016-08-04] MEDS ORDERED: OMEP20 PO (04:03)
[2016-08-04] MEDS ORDERED: AMLO-511 PO (04:03)
[2016-08-04] MEDS ORDERED: THIA100 PO (04:04)
[2016-08-04] MEDS: LEVOTHYROXINE SODIUM 100 MCG TABLET PO SCH (06:21)
== END 2016-08-04 07:15 | disposition home or self-care (01) | DRG 885 ==
LOC: EMS 05:04 → B2X 08:18 → B2S 07-28 09:06 → B2X 07-28 10:24
PROVIDERS: ATTEND Psychiatry & Neurology Psychiatry
PROC: GZ51ZZZ Individual Psychotherapy, Behavioral (ICD-10-PCS; principal; 2016-07-26)
DX: F25.1 Schizoaffective disorder, depressive type (principal); R45.851 Suicidal ideations; F17.210 Nicotine dependence, cigarettes, uncomplicated; Z96.659 Presence of unspecified artificial knee joint; R45.850 Homicidal ideations; M81.0 Age-related osteoporosis without current pathological fracture; M19.90 Unspecified osteoarthritis, unspecified site; J44.9 Chronic obstructive pulmonary disease, unspecified; I34.1 Nonrheumatic mitral (valve) prolapse; I10 Essential (primary) hypertension; G89.4 Chronic pain syndrome; E03.9 Hypothyroidism, unspecified; D64.9 Anemia, unspecified; B95.62 Methicillin resistant Staphylococcus aureus infection as the cause of diseases classified elsewhere; F99 Mental disorder, not otherwise specified; Z95.0 Presence of cardiac pacemaker; Z88.2 Allergy status to sulfonamides; Z88.6 Allergy status to analgesic agent; Z88.8 Allergy status to other drugs, medicaments and biological substances; Z98.890 Other specified postprocedural states; Z98.84 Bariatric surgery status; Z90.49 Acquired absence of other specified parts of digestive tract; Z87.11 Personal history of peptic ulcer disease; Z91.19 Patient's noncompliance with other medical treatment and regimen; Z85.858 Personal history of malignant neoplasm of other endocrine glands; Z28.21 Immunization not carried out because of patient refusal; Z79.899 Other long term (current) drug therapy; Z98.1 Arthrodesis status; Z95.2 Presence of prosthetic heart valve; Z90.710 Acquired absence of both cervix and uterus
CPT/HCPCS: 83036; 87081; 99285; A0429; G0480